=== PATIENT | female | born 1965 | race Two or more races ===

== ENCOUNTER 2019-03-22 10:26 | Emergency (ER) | payer MEDICAID ==
--- NOTE | 2019-03-22 10:56 | ER Document Report ---
ED General - General Chief Complaint: Rectal Bleeding Stated Complaint: RECTAL BLEEDING Time Seen by Provider: 03/22/19 10:54 Primary Care Provider: PRIMO KUHN MD [ACTIVE STAFF] - Follow up in 3-5 days HAIM AMADOR MD [ACTIVE STAFF] - Follow up in 3-5 days Notes: Patient is a 53-year-old female that presents to the emergency department for chief complaint of abdominal pain, and rectal bleeding. Patient reports she started having bright red blood per rectum, with her bowel movements, over the past 4 days, denies prior history of this in the past. She is had some abdominal cramping, denies any constipation, she did have diarrhea yesterday, but it has since resolved. She is had some mild nausea but no vomiting. The pain is mainly on the left side of her lower abdomen. She currently rates her pain as a 2 out of 10 describes it is mild in nature, and it comes and goes. She denies any any recent fevers, chills, night sweats, chest pain, shortness of breath, difficulty breathing. Reports having a colonoscopy about a year ago and was told that it was normal at that time. Past Medical History: Denies chronic medical conditions Past Surgical History: Tummy tuck and hysterectomy Social History: Denies tobacco, alcohol or drug use Family History: Reviewed and noncontributory for presenting illness Allergies: Reviewed, see documented allergy list. REVIEW OF SYSTEMS: Other than noted above, the 12 point review of systems was reviewed with the patient and were negative, all pertinent findings are included in the HPI. PHYSICAL EXAMINATION: Vital signs reviewed, nursing noted reviewed. GENERAL: Well-appearing, well-nourished and in no acute distress. HEAD: Atraumatic, normocephalic. EYES: Eyes appear normal, extraocular movements intact, sclera anicteric, conjunctiva are normal. ENT: nares patent, oropharynx clear without exudates. Moist mucous membranes. NECK: Normal range of motion, supple without lymphadenopathy LUNGS: Breath sounds clear to auscultation bilaterally and equal. No wheezes rales or rhonchi. HEART: Regular rate and rhythm without murmurs ABDOMEN: Mild lower abdominal tenderness to palpation particularly on the left side of the abdomen. No rebound, guarding or rigidity. EXTREMITIES: Nontender, good range of motion, no pitting or edema. NEUROLOGICAL: No focal neurological deficits. Moves all extremities spontaneously Motor and sensory grossly intact on exam. PSYCH: Normal mood, normal affect. SKIN: Warm, Dry, normal turgor, no rashes or lesions noted on exposed skin TRAVEL OUTSIDE OF THE [place] IN LAST 30 DAYS: No - Related Data Allergies/Adverse Reactions: No Known Allergies Allergy (Verified 03/22/19 12:11) Past Medical History - Social History Smoking Status: Never Smoker Family History: Reviewed & Not Pertinent Physical Exam - Vital signs Vitals: Temp Pulse Resp BP Pulse Ox 98.2 F 62 16 124/75 99 03/22/19 10:38 03/22/19 10:38 03/22/19 10:38 03/22/19 10:38 03/22/19 10:38 Course - Re-evaluation Re-evalutation: Patient seen and examined vital signs reviewed. Laboratory data and/or imaging were ordered as appropriate for the patient's presenting symptoms and complaint, with consideration of any critical or life threatening conditions that may be associated with their obtained history and exam as noted above. Patient was treated with IV fluids and Zofran Results were reviewed when available and demonstrated unremarkable blood work, no anemia, CT imaging demonstrated possible narrowing of the descending colon, concerning for possible intraluminal mass, this was discussed with the patient and the patient's daughter at bedside, and advised outpatient colonoscopy and scheduling with gastroneurology, which are given a referral, she is from [place], and has had a gastroneurologist in the past in [place], there is suggested also call there to since she is just visiting for the next month. The patient was re-evaluated and was stable, no complaints of pain Evaluation was most consistent with rectal bleeding, possible colonic mass. Results were discussed with the patient at this point, after careful consideration I feel that that patient can be discharged from the emergency department, the patient was educated treatments and reasons to return to the emergency department based on their presumed diagnosis as noted above, they were advised to followup with a primary care physician in 2-3 days. Patient was agreeable to plan of care. *Note is created using voice recognition software and may contain spelling, syntax or grammatical errors. Laboratory 03/22/19 03/22/19 03/22/19 10:57 10:57 10:57 WBC 4.9 RBC 4.11 Hgb 12.8 Hct 37.7 MCV 92 MCH 31.2 MCHC 34.0 RDW 13.3 Plt Count 294 Seg Neutrophils % 47.6 Lymphocytes % 39.6 Monocytes % 9.7 Eosinophils % 2.4 Basophils % 0.7 Absolute Neutrophils 2.3 Absolute Lymphocytes 1.9 Absolute Monocytes 0.5 Absolute Eosinophils 0.1 Absolute Basophils 0.0 PT 12.4 INR 0.88 APTT 27.3 Sodium 143.9 Potassium 4.0 Chloride 106 Carbon Dioxide 31 H Anion Gap 7 BUN 11 Creatinine 0.54 Est GFR ( Amer) > 60 Est GFR (Non-Af Amer) > 60 Glucose 57 L Calcium 10.0 Total Bilirubin 0.3 Direct Bilirubin 0.1 Neonat Total Bilirubin Not Reportable Neonat Direct Bilirubin Not Reportable Neonat Indirect Bili Not Reportable AST 24 ALT 25 Alkaline Phosphatase 60 Total Protein 6.6 Albumin 3.8 Lipase 92.7 Urine Color Urine Appearance Urine pH Ur Specific Humphrey Urine Protein Urine Glucose (UA) Urine Ketones Urine Blood Urine Nitrite Urine Bilirubin Urine Urobilinogen Ur Leukocyte Esterase Urine WBC (Auto) Urine RBC (Auto) Urine Mucus (Auto) Urine Ascorbic Acid 03/22/19 10:57 WBC RBC Hgb Hct MCV MCH MCHC RDW Plt Count Seg Neutrophils % Lymphocytes % Monocytes % Eosinophils % Basophils % Absolute Neutrophils Absolute Lymphocytes Absolute Monocytes Absolute Eosinophils Absolute Basophils PT INR APTT Sodium Potassium Chloride Carbon Dioxide Anion Gap BUN Creatinine Est GFR ( Amer) Est GFR (Non-Af Amer) Glucose Calcium Total Bilirubin Direct Bilirubin Neonat Total Bilirubin Neonat Direct Bilirubin Neonat Indirect Bili AST ALT Alkaline Phosphatase Total Protein Albumin Lipase Urine Color YELLOW Urine Appearance CLEAR Urine pH 7.0 Ur Specific Humphrey 1.014 Urine Protein NEGATIVE Urine Glucose (UA) NEGATIVE Urine Ketones NEGATIVE Urine Blood NEGATIVE Urine Nitrite NEGATIVE Urine Bilirubin NEGATIVE Urine Urobilinogen NEGATIVE Ur Leukocyte Esterase NEGATIVE Urine WBC (Auto) 0 Urine RBC (Auto) 2 Urine Mucus (Auto) RARE Urine Ascorbic Acid NEGATIVE Abdomen/Pelvis CT 03/22/19 11:47 IMPRESSION: 1. QUESTIONABLE MILD LUMINAL NARROWING AND WALL THICKENING OF THE ASCENDING COLON DESCRIBED. THIS COULD BE ARTIFACT DUE TO PERISTALSIS. CANNOT ENTIRELY EXCLUDE UNDERLYING COLONIC NEOPLASM. EVALUATION LIMITED DUE TO LACK OF GI CONTRAST. NO INFLAMMATORY CHANGES OR OTHER ACUTE FINDINGS. IF THERE HAS BEEN NO RECENT EVALUATION OF THE COLON, MAY CONSIDER COLONOSCOPY FOR MORE COMPLETE EVALUATION. 2. NO OTHER SIGNIFICANT OR ACUTE FINDING IN THE ABDOMEN OR PELVIS ON CT SCAN WITH IV CONTRAST. - Vital Signs Vital signs: Temp Pulse Resp BP Pulse Ox 98.6 F 62 15 131/83 H 100 03/22/19 14:15 03/22/19 10:38 03/22/19 14:01 03/22/19 14:01 03/22/19 14:00 - Laboratory Result Diagrams: 03/22/19 10:57 03/22/19 10:57 Laboratory results interpreted by me: 03/22/19 10:57 Carbon Dioxide 31 H Glucose 57 L Discharge - Discharge Clinical Impression: Rectal bleeding Condition: Stable Disposition: HOME, SELF-CARE Instructions: Rectal Bleeding, Unclear Cause (OM) Additional Instructions: Please follow-up with gastroenterology to schedule colonoscopy, sooner than later. If you have lightheadedness, feeling like he may pass out, or feel like her heart is racing, or feel that you are bleeding more, do not hesitate to return to the emergency department sooner. Referrals: PRIMO KUHN MD [ACTIVE STAFF] - Follow up in 3-5 days HAIM AMADOR MD [ACTIVE STAFF] - Follow up in 3-5 days
[2019-03-22 11:22] LABS: ABSOLUTE EOSINOPHILS # (AUTO) 0.1 10^3/uL (0.0-0.6); ABSOLUTE LYMPHOCYTES (AUTO) 1.9 10^3/uL (0.5-4.7); ABSOLUTE MONOCYTES (AUTO) 0.5 10^3/uL (0.1-1.4); ABSOLUTE NEUT (AUTO) 2.3 10^3/uL (1.7-8.2); BASOPHILS % (AUTO) 0.7 % (0-2); EOSINOPHILS % (AUTO) 2.4 % (0-6); HEMATOCRIT 37.7 % (36.0-47.0); HEMOGLOBIN 12.8 g/dL (12.0-15.5); LYMPHOCYTES % (AUTO) 39.6 % (13-45); MEAN CORPUSCULAR HEMOGLOBIN 31.2 pg (27.0-33.4); MEAN CORPUSCULAR VOLUME 92 fl (80-97); MONOCYTES % (AUTO) 9.7 % (3-13); PLATELET COUNT 294 10^3/uL (150-450); RED BLOOD COUNT 4.11 10^6/uL (3.72-5.28); RED CELL DISTRIBUTION WIDTH 13.3 % (11.5-14.0); SEGMENTED NEUTROPHILS % (AUTO) 47.6 % (42-78); TOTAL CELLS COUNTED % (AUTO) 100 %; WHITE BLOOD COUNT 4.9 10^3/uL (4.0-10.5)
[2019-03-22 11:31] LABS: INTERNATIONAL RATION (INR) 0.88; PROTHROMBIN TIME 12.4 SEC (11.4-15.4)
[2019-03-22 11:32] LABS: PARTIAL THROMBOPLASTIN TIME 27.3 SEC (23.5-35.8)
[2019-03-22 11:37] LABS: ALANINE AMINOTRANSFERASE 25 U/L (9-52); ALBUMIN 3.8 g/dL (3.5-5.0); ALKALINE PHOSPHATASE 60 U/L (38-126); ANION GAP 7 (5-19); ASPARTATE AMINO TRANSFERASE 24 U/L (14-36); BILIRUBIN,DIRECT 0.1 mg/dL (0.0-0.4); BILIRUBIN,TOTAL 0.3 mg/dL (0.2-1.3); BLOOD UREA NITROGEN 11 mg/dL (7-20); CARBON DIOXIDE 31 mmol/L (22-30); CHLORIDE 106 mmol/L (98-107); LIPASE 92.7 U/L (23-300); SODIUM 143.9 mmol/L (137-145); TOTAL PROTEIN 6.6 g/dL (6.3-8.2)
[2019-03-22 11:43] LABS: GLUCOSE 57 mg/dL (75-110)
[2019-03-22 12:34] LABS: APPEARANCE,URINE CLEAR; BILIRUBIN,URINE NEGATIVE (NEGATIVE); COLOR,URINE YELLOW; GLUCOSE, URINE NEGATIVE (NEGATIVE); KETONES,URINE NEGATIVE (NEGATIVE); LEUKOCYTE ESTERASE,URINE NEGATIVE (NEGATIVE); NITRITE,URINE NEGATIVE (NEGATIVE); PROTEIN,URINE NEGATIVE (NEGATIVE); URINE SPECIFIC GRAVITY 1.014; UROBILINOGEN,URINE NEGATIVE mg/dL (<2.0)
--- NOTE | 2019-03-22 13:15 | RADIOLOGY REPORT (SQ) ---
EXAM DESCRIPTION: CT ABD/PELVIS WITH IV ONLY COMPLETED DATE/TIME: 03/22/2019 12:58 pm REASON FOR STUDY: right sided abdominal pain, blood in stool COMPARISON: None. TECHNIQUE: CT scan of the abdomen and pelvis performed using helical scanning technique with dynamic intravenous contrast injection. No oral contrast. Images reviewed with lung, soft tissue, and bone windows. Reconstructed coronal and sagittal MPR images reviewed. Delayed images for evaluation of the urinary system also acquired. All images stored on PACS. All CT scanners at this facility use dose modulation, iterative reconstruction, and/or weight based d osing when appropriate to reduce radiation dose to as low as reasonably achievable (ALARA). [facility]: Dose Right [facility]: CareDose [facility]: Dose Right [facility]: Teradose 4D [facility]: [place] CONTRAST TYPE AND DOSE: contrast/concentration: Isovue 350.00 mg/ml; Total Contrast Delivered: 83.0 ml; Total Saline Delivered: 69.0 ml RENAL FUNCTION: BUN 11 creatinine 0.54. RADIATION DOSE: CT Rad equipment meets quality standard of care and radiation dose reduction techniq ues were employed. CTDIvol: 7.4 - 10.5 mGy. DLP: 959 mGy-cm.. LIMITATIONS: None. FINDINGS: LOWER CHEST: No significant findings. No nodules or infiltrates. LIVER: Normal size. Small cyst in the caudate lobe. No masses. No dilated ducts. SPLEEN: Normal size. No focal lesions. PANCREAS: No masses. No significant calcifications. No adjacent inflammation or peripancreatic fluid collections. Pancreatic duct not dilated. GALLBLADDER: Surgically absent. ADRENAL GLANDS: No significant masses or asymmetry. RIGHT KIDNEY AND URETER: No solid masses. No significant calcifications. No hydronephrosis or hyd roureter. LEFT KIDNEY AND URETER: No solid masses. No significant calcifications. No hydronephrosis or hydr oureter. AORTA AND VESSELS: No aneurysm. No dissection. Renal arteries, SMA, celiac without stenosis. RETROPERITONEUM: No retroperitoneal adenopathy, hemorrhage or masses. BOWEL AND PERITONEAL CAVITY: There is questionable mild luminal narrowing and wall thickening of the ascending colon (axial series 3 images 30-45 and coronal series 601, images 40-43). No inflammatory changes. No free fluid or peritoneal masses. APPENDIX: Normal. PELVIS: No mass. No free fluid. Normal bladder. ABDOMINAL WALL: No masses. No hernias. BONES: No significant or acute findings. OTHER: No other significant finding. IMPRESSION: 1. QUESTIONABLE MILD LUMINAL NARROWING AND WALL THICKENING OF THE ASCENDING COLON DESCRIBED. THIS COULD BE ARTIFACT DUE TO PERISTALSIS. CANNOT ENTIRELY EXCLUDE UNDERLYING COLONIC NEOPLASM. EVALUAT ION LIMITED DUE TO LACK OF GI CONTRAST. NO INFLAMMATORY CHANGES OR OTHER ACUTE FINDINGS. IF THERE H BEEN NO RECENT EVALUATION OF THE COLON, MAY CONSIDER COLONOSCOPY FOR MORE COMPLETE EVALUATION. 2. NO OTHER SIGNIFICANT OR ACUTE FINDING IN THE ABDOMEN OR PELVIS ON CT SCAN WITH IV CONTRAST. TECHNICAL DOCUMENTATION: JOB ID: [id number] Quality ID # [id number]: Final reports with documentation of one or more dose reduction techniques (e.g., Au tomated exposure control, adjustment of the mA and/or kV according to patient size, use of iterative reconstruction technique) 2010 [employer]- All Rights Reserved Reading location - IP/workstation name: [email or web address]
[2019-03-22 14:13] VITALS: BP 131/83
== END 2019-03-22 14:16 | disposition home or self-care (01) ==
LOC: ER 10:26
DX: K62.5 Hemorrhage of anus and rectum (principal); R10.30 Lower abdominal pain, unspecified; R11.0 Nausea
CPT/HCPCS: 36415; 74177; 80053; 81001; 83690; 85025; 85610; 85730; 99284

== ENCOUNTER 2019-04-10 20:15 | Emergency (ER) | payer MEDICAID ==
[2019-04-10] MEDS ORDERED: KETOROLAC TROMETHAMINE 60 MG/2 ML SDV IM ONE (23:12)
[2019-04-10] MEDS ORDERED: DIPHENHYDRAMINE HCL 50 MG/ML VIAL IM ONE (23:12)
[2019-04-10] MEDS ORDERED: PROCHLORPERAZINE EDISYLATE INJ 10 MG/2 ML VIAL IM ONE (23:12)
[2019-04-11 01:35] VITALS: BP 145/72
--- NOTE | 2019-04-11 07:29 | ER Document Report ---
Entered by NEO HORTON SCRIBE 04/10/19 2082 Acting as scribe for:ARMANDO VARGAS DO ED General - General Chief Complaint: Headache Stated Complaint: HEADACHE AND NAUSEA Time Seen by Provider: 04/10/19 22:35 Mode of Arrival: Ambulatory Information source: Patient, Relative Notes: Patient is a 53 year old female with migraines presents to the emergency department accompanied by daughter complaining of a headache with associated nausea and photophobia. Patient states the headache is located posteriorly and is exacerbated with head movements. Patient reports her headache feels like her priors although it will not go away. She reports previously presenting to the emergency department for similar symptoms and receiving "shots" that will relieve her headache. She states she has taken her prescribed Fioricet and 3 tabs of 650mg Tylenol with no relief. She also complains of chills and a recent cold. She denies any vomiting, neck pain, earaches, fevers or numbness. Patient mentions being diagnosed with a "blockage of the colon" last week and reports planning to follow up in [place]. - Related Data Allergies/Adverse Reactions: No Known Allergies Allergy (Verified 03/22/19 12:11) Past Medical History - General Information source: Patient, Relative - Social History Smoking Status: Never Smoker Cigarette use (# per day): No Chew tobacco use (# tins/day): No Smoking Education Provided: No Frequency of alcohol use: None Drug Abuse: None Family History: Reviewed & Not Pertinent Patient has suicidal ideation: No Patient has homicidal ideation: No Neurological Medical History: Reports: Hx Migraine Review of Systems - Review of Systems Constitutional: See HPI, Chills EENT: See HPI Cardiovascular: No symptoms reported Respiratory: No symptoms reported Gastrointestinal: No symptoms reported Genitourinary: No symptoms reported Female Genitourinary: No symptoms reported Musculoskeletal: No symptoms reported Skin: No symptoms reported Hematologic/Lymphatic: No symptoms reported Neurological/Psychological: See HPI, Headaches -: Yes All other systems reviewed and negative Physical Exam - Vital signs Vitals: Temp Pulse Resp BP Pulse Ox 97.6 F 74 20 105/66 96 04/10/19 20:26 04/10/19 20:26 04/10/19 20:26 04/10/19 20:26 04/10/19 20:26 - Notes Notes: GENERAL: Alert, interacts well. No acute distress, though the lights are low in the room and she has mild photophobia. HEAD: Normocephalic, atraumatic. EYES: Pupils equal, round, and reactive to light. Extraocular movements intact. ENT: Oral mucosa moist, tongue midline. Nares patent, clear rhinorrhea, turbinate edema, no nasal septal hematoma. Small amount of post nasal drip. Clear fluid behind the left TM, right TM is intacts. NECK: Full range of motion. Supple. Trachea midline. Tender to palpate the cervical paraspinal muscles. No nuchal rigidity, no meningismus. LUNGS: Clear to auscultation bilaterally, no wheezes, rales, or rhonchi. No respiratory distress. HEART: Regular rate and rhythm. No murmurs, gallops, or rubs. ABDOMEN: Soft, non-tender. Non-distended. Bowel sounds present in all 4 quadrants. No guarding, rigidity, or rebound. EXTREMITIES: Moves all 4 extremities spontaneously. No edema, radial and dorsalis pedis pulses 2/4 bilaterally. No cyanosis. NEUROLOGICAL: Alert and oriented x3. Normal speech. Biceps and patellar DTRs 2+ bilaterally. PSYCH: Normal affect, normal mood. SKIN: Warm, dry, normal turgor. No rashes or lesions noted. Course - Re-evaluation Re-evalutation: 04/11/19 01:06 Symptoms are similar to prior headaches, no new symptoms, no fevers although she does describe occasional chills. Patient has no red flag symptoms, no evidence of meningitis, no nuchal rigidity. Patient will be treated with Toradol, Compazine and Benadryl. After treatment patient feels much better and is sleeping. Patient will be discharged to home. No indication for CT scan or lumbar puncture, no neurologic deficits. - Vital Signs Vital signs: Temp Pulse Resp BP Pulse Ox 98.4 F 78 12 145/72 H 96 04/11/19 01:33 04/11/19 01:33 04/11/19 01:33 04/11/19 01:33 04/10/19 20:26 Discharge - Discharge Clinical Impression: Intractable migraine Qualifiers: Migraine type: without aura Status migrainosus presence: with status migrainosus Qualified Code(s): G43.011 - Migraine without aura, intractable, with status migrainosus Condition: Stable Disposition: HOME, SELF-CARE Additional Instructions: Today we treated her migraine headache with Toradol, Compazine and Benadryl. It appears to have improved her migraine. If you develop fevers, worsening headache or any new or concerning symptoms please return to the emergency department. As we discussed, your CT scan from your last visit showed some narrowing of the ascending colon that is concerning for possible mass or cancer. It is very important that you have a colonoscopy as an outpatient to check on this narrowing. The CAT scan read says that it could have also been a normal variation due to the squeezing of intestine. I personally performed the services described in the documentation, reviewed and edited the documentation which was dictated to the scribe in my presence, and it accurately records my words and actions.
== END 2019-04-11 01:33 | disposition home or self-care (01) ==
LOC: ER 20:15
DX: G43.011 Migraine without aura, intractable, with status migrainosus (principal); R11.0 Nausea; H53.149 Visual discomfort, unspecified; R68.83 Chills (without fever)
CPT/HCPCS: 99283; 96372; J1200; J1885; J0780